=== PATIENT | male | born 1990 | race Caucasian/White ===

== ENCOUNTER 2016-11-03 21:22 | Emergency (ER) | payer OTHER ==
[~2016-11-03] VITALS: Ht 175.3 cm; Wt 83.2 kg
[~2016-11-03 21:22] MED LIST: HYDROCODON-ACE1 EAC7 PO; IBUPROFEN600 MG PO; TYLENOL WITH C1 EACH PO
[2016-11-03] MEDS ORDERED: NORCO 7.5/321 TABLET PO (22:57)
[2016-11-03] MEDS ORDERED: MOTRIN800 MG PO (22:57)
[2016-11-03 23:15] VITALS: BP 130/81
== END 2016-11-03 23:16 | disposition home or self-care (01) ==
LOC: EME 21:22
DX: S83.412A Sprain of medial collateral ligament of left knee, initial encounter (principal); X50.1XXA Overexertion from prolonged static or awkward postures, initial encounter; F17.200 Nicotine dependence, unspecified, uncomplicated
CPT/HCPCS: 73564; 99281; 99284

== ENCOUNTER 2017-06-29 22:01 | Emergency (ER) | payer OTHER ==
[~2017-06-29] VITALS: Ht 175.3 cm; Wt 77.5 kg
[~2017-06-29 22:01] MED LIST changes: +MOTRIN800 MG PO; +NORCO 7.5/321 TABLET PO
[2017-06-30] MEDS ORDERED: NORCO 5/3251 TABLET PO (02:00)
[2017-06-30] MEDS ORDERED: FLEXERIL10 MG PO (02:00)
[2017-06-30 02:09] VITALS: BP 119/64
== END 2017-06-30 02:14 | disposition home or self-care (01) ==
LOC: EME 22:01
DX: S16.1XXA Strain of muscle, fascia and tendon at neck level, initial encounter (principal); S39.012A Strain of muscle, fascia and tendon of lower back, initial encounter; V43.53XA Car driver injured in collision with pick-up truck in traffic accident, initial encounter; Y92.410 Unspecified street and highway as the place of occurrence of the external cause; F17.200 Nicotine dependence, unspecified, uncomplicated
CPT/HCPCS: 72040; 72100; 99281; 99284